=== PATIENT | female | born 1935 | race Caucasian/White ===

== ENCOUNTER 2020-08-24 16:31 | Emergency (ER) | payer MEDICARE, MEDICAID ==
--- NOTE | 2020-08-24 16:57 | EDM.PDOC ---
ED HPI GENERAL MEDICAL PROBLEM - General Chief Complaint: General Stated Complaint: MEDICAL VIA [facility] Time Seen by Provider: 08/24/20 16:56 Source of Information: Reports: Patient History Limitations: Reports: No Limitations - History of Present Illness INITIAL COMMENTS - FREE TEXT/NARRATIVE: pt was exercising in her apartment and she lost her balance and fell. She hit her rt chest and is having alot of pain when she does deep breathes. Onset: Today, Sudden Duration: Hour(s): Location: Reports: Chest Associated Symptoms: Reports: No Other Symptoms Right Middle Chest Pain Score (Numeric/FACES): 10 - Related Data Allergies Allergy/AdvReac Type Severity Reaction Status Date / Time metronidazole [From Flagyl] Allergy Paralysis Verified 11/14/13 07:45 Metronidazole HCl Allergy Paralysis Verified 11/14/13 07:45 [From Flagyl] Penicillins Allergy Cannot Verified 11/14/13 07:45 Remember sulfamethoxazole Allergy Hives Verified 11/14/13 07:45 [From Septra] trimethoprim [From Septra] Allergy Hives Verified 11/14/13 07:45 Home Meds: Home Meds Hydrochlorothiazide/Lisinopril [Lisinopril-HCTZ 20-25 MG] 1 tab PO DAILY 11/11/13 [History] Metoprolol Tartrate [Lopressor] 50 mg PO BID 11/11/13 [History] Dnxfj-8-Osto Ethyl Esters [Lovaza] 1 tab PO DAILY 11/11/13 [History] allopurinoL [Allopurinol] 100 mg PO DAILY 11/11/13 [History] Cyclobenzaprine [Flexeril] 5 mg PO QID 08/24/20 [History] Past Medical History Cardiovascular History: Reports: Hypertension - Infectious Disease History Infectious Disease History: Reports: Chicken Pox, Measles, Mumps Social & Family History - Tobacco Use Tobacco Use Status *Q: Never Tobacco User - Caffeine Use Caffeine Use: Reports: None - Recreational Drug Use Recreational Drug Use: No ED ROS GENERAL - Review of Systems Review Of Systems: See Below Constitutional: Reports: No Symptoms HEENT: Reports: No Symptoms Respiratory: Reports: Shortness of Breath, Other (pain with deep breathing. ) Cardiovascular: Reports: No Symptoms Endocrine: Reports: No Symptoms GI/Abdominal: Reports: No Symptoms : Reports: No Symptoms Musculoskeletal: Reports: Other ( tender over the rt chest. ) Skin: Reports: No Symptoms ED EXAM, GENERAL - Physical Exam Exam: See Below Free Text/Narrative:: t when she moves or takes a deep breath. Exam Limited By: No Limitations General Appearance: Alert, Anxious, Moderate Distress Ears: Normal TMs Nose: Normal Inspection Throat/Mouth: Normal Inspection Head: Atraumatic Neck: Normal Inspection Respiratory/Chest: Splinting Cardiovascular: Regular Rate, Rhythm GI/Abdominal: Soft, Non-Tender (Female) Exam: Deferred Rectal (Female) Exam: Deferred Back Exam: Normal Inspection Extremities: Normal Inspection Course - Vital Signs Last Recorded V/S: Last Vital Signs Temp 35.9 C L 08/24/20 16:38 Pulse 60 08/24/20 17:44 Resp 15 08/24/20 17:44 BP 171/78 H 08/24/20 17:44 Pulse Ox 96 08/24/20 17:44 - Orders/Labs/Meds Orders: Active Orders 24 hr Category Date Time Status Ribs 2V w Chest Rt [CR] Stat Exams 08/24/20 16:53 Taken Meds: Medications Discontinued Medications Generic Name Dose Route Start Last Admin Trade Name Premq PRN Reason Stop Dose Admin Ketorolac Tromethamine 60 mg 08/24/20 17:31 08/24/20 17:44 Toradol IM 08/24/20 17:32 60 mg ONETIME ONE Administration - Re-Assessments/Exams Free Text/Narrative Re-Assessment/Exam: 08/24/20 18:02 rib detail did not reveal any definite rib fractures obviously she could have a hairline fracture. Departure - Departure Time of Disposition: 17:56 Disposition: Home, Self-Care 01 Condition: Fair Clinical Impression: Chest wall contusion - Discharge Information Instructions: Contusion, [id number] Referrals: PCP,None [Primary Care Provider] - Forms: ED Department Discharge Care Plan Goals: cool pack to rt ant cest, tylenol 3 1 tab q6h prn for pain, pain meds can cause constipation, use prunes. to keep stools soft. encourage deep breathing, insentive spirometer. Sepsis Event Note (ED) - Evaluation Sepsis Screening Result: No Definite Risk - Focused Exam Vital Signs: Vital Signs Temp Pulse Resp BP Pulse Ox 08/24/20 17:44 60 15 171/78 H 96 08/24/20 17:15 57 L 162/76 H 08/24/20 16:38 35.9 C L 70 17 168/86 H 96 08/24/20 16:35 35.9 C L 70 17 168/86 H 96 - My Orders Last 24 Hours: My Active Orders 08/24/20 16:53 Ribs 2V w Chest Rt [CR] Stat - Assessment/Plan Last 24 Hours: My Active Orders 08/24/20 16:53 Ribs 2V w Chest Rt [CR] Stat
[2020-08-24] MEDS ORDERED: Ketorolac 60 MG/2 ML SDV IM ONE (17:31)
--- NOTE | 2020-08-27 10:31 | CR ---
Ribs 2V w Chest Rt CLINICAL HISTORY: Pain, fall FINDINGS: There is no acute fracture within the ribs. No destructive changes are seen. There is no focal pleural thickening or obvious effusion. There are atherosclerotic changes in the aorta. IMPRESSION: Negative right ribs.
== END 2020-08-24 19:00 | disposition home or self-care (01) ==
LOC: JP.ED 16:31
DX: S20.211A Contusion of right front wall of thorax, initial encounter (principal); I10 Essential (primary) hypertension; Z88.1 Allergy status to other antibiotic agents; Z88.0 Allergy status to penicillin; Z88.2 Allergy status to sulfonamides; Z79.899 Other long term (current) drug therapy; W01.0XXA Fall on same level from slipping, tripping and stumbling without subsequent striking against object, initial encounter
CPT/HCPCS: 71101-26-RT; 71101-RT; 96372; 99283; 99283-25; J1885

== ENCOUNTER 2020-08-26 19:37 | Inpatient (IN) | payer MEDICARE, MEDICAID ==
[2020-08-26] MEDS ORDERED: Sodium Chloride 0.9% 10 ML Syringe FLUSH PRN (21:11)
--- NOTE | 2020-08-26 21:40 | EDM.PDOC ---
ED HPI GENERAL MEDICAL PROBLEM - General Chief Complaint: Back Pain or Injury Stated Complaint: MED VIA NOR[facility] Time Seen by Provider: 08/26/20 20:00 Source of Information: Reports: Patient, EMS History Limitations: Reports: No Limitations - History of Present Illness INITIAL COMMENTS - FREE TEXT/NARRATIVE: 85-year-old female who is fallen several times at home in the last few days, was evaluated in the emergency room 3 days ago with chest wall contusion. She fell 2 more times today, one hard on her back and now she has significant back pain. She has some chronic back pain but it is markedly worse. EMS was called for a "lift assist" but found her in much worse condition than her baseline so brought her in for evaluation. She has significant tenderness in the mid and lower back. No nausea or vomiting, chest pain, shortness of breath or head injury. Onset: Sudden (Sudden increase in back pain after falls today) Location: Reports: Back Associated Symptoms: Reports: No Other Symptoms. 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 Middle Back Pain Score (Numeric/FACES): 8 - Related Data Allergies Allergy/AdvReac Type Severity Reaction Status Date / Time metronidazole [From Flagyl] Allergy Paralysis Verified 08/26/20 20:56 Metronidazole HCl Allergy Paralysis Verified 08/26/20 20:56 [From Flagyl] Penicillins Allergy Cannot Verified 08/26/20 20:56 Remember sulfamethoxazole Allergy Hives Verified 08/26/20 20:56 [From Septra] trimethoprim [From Septra] Allergy Hives Verified 08/26/20 20:56 Home Meds: Home Meds Hydrochlorothiazide/Lisinopril [Lisinopril-HCTZ 20-25 MG] 1 tab PO DAILY 11/11/13 [History] Metoprolol Tartrate [Lopressor] 50 mg PO BID 11/11/13 [History] Bdyjh-5-Etis Ethyl Esters [Lovaza] 1 tab PO DAILY 11/11/13 [History] allopurinoL [Allopurinol] 100 mg PO DAILY 11/11/13 [History] Cyclobenzaprine [Flexeril] 5 mg PO QID PRN 08/24/20 [History] Past Medical History Cardiovascular History: Reports: Arrhythmia, High Cholesterol, Hypertension Other Cardiovascular History: frequent PVC's 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: Reports: GERD 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: Musculoskeletal History: Reports: Back Pain, Chronic, Osteoarthritis Endocrine/Metabolic History: Reports: Hypokalemia - Infectious Disease History Infectious Disease History: Reports: Chicken Pox, Measles, Mumps - Past Surgical History GI Surgical History: Reports: Colonoscopy Female Surgical History: Reports: Tubal Ligation Social & Family History - Tobacco Use Tobacco Use Status *Q: Never Tobacco User Second Hand Smoke Exposure: No - Caffeine Use Caffeine Use: Reports: None - Recreational Drug Use Recreational Drug Use: No ED ROS GENERAL - Review of Systems Review Of Systems: See Below Constitutional: Denies: Fever, Chills, Malaise HEENT: Reports: No Symptoms Respiratory: Denies: Shortness of Breath Cardiovascular: Denies: Chest Pain GI/Abdominal: Denies: Abdominal Pain, Nausea, Vomiting Skin: Denies: Bruising Neurological: Denies: Paresthesia Psychiatric: Reports: No Symptoms ED EXAM,LOWER BACK PAIN/INJURY - Physical Exam Exam: See Below Exam Limited By: No Limitations General Appearance: Alert, No Apparent Distress (Uncomfortable when lying still but not distressed, very difficult to move even with assistance) Eye Exam: Bilateral Eye: EOMI Head: Atraumatic Neck: Supple, Non-Tender Respiratory/Chest: Lungs Clear Cardiovascular: Regular Rate, Rhythm Back Exam: Vertebral Tenderness (Some mild increased tenderness to percussion of the mid thoracic spine and palpation of the paralumbar muscles) Neurological: Alert, No Motor/Sensory Deficits, Oriented x 3 Psychiatric: Normal Affect, Normal Mood Skin Exam: Warm, Dry Course - Vital Signs Last Recorded V/S: Last Vital Signs Temp 98.7 F 08/26/20 22:24 Pulse 91 08/26/20 22:24 Resp 20 08/26/20 22:24 BP 180/78 H 08/26/20 22:24 Pulse Ox 93 L 08/26/20 22:24 - Orders/Labs/Meds Orders: Active Orders 24 hr Category Date Time Status Sodium Chloride 0.9% [Saline Flush] Med 08/26/20 21:11 Active 10 ml FLUSH ASDIRECTED PRN Saline Lock Insert [OM.PC] Routine Oth 08/26/20 21:11 Ordered Medication Orders Acetaminophen (Tylenol) 650 mg PO Q4H PRN PRN Reason: Pain Hydrocodone Bitart/Acetaminophen ([place] 325-5 Mg) 1 tab PO Q4H PRN PRN Reason: Pain Allopurinol (Zyloprim) 100 mg PO DAILY NESTOR Docusate Sodium (Colace) 100 mg PO DAILY NESTOR Metoprolol Tartrate (Lopressor) 50 mg PO BID NESTOR Non-Formulary Medication (Hydrochlorothiazide/Lisinopril [Lisinopril-Hctz 20-25 Mg]) 1 tab PO DAILY NESTOR Sodium Chloride (Saline Flush) 10 ml FLUSH ASDIRECTED PRN PRN Reason: Keep Vein Open Last Admin: 08/26/20 22:10 Dose: 10 ml Documented by: OLIVA Meds: Medications Generic Name Dose Route Start Last Admin Trade Name Freq PRN Reason Stop Dose Admin Acetaminophen 650 mg 08/26/20 22:16 Tylenol PO Q4H PRN Pain Hydrocodone Bitart/Acetaminophen 1 tab 08/26/20 22:16 [place] 325-5 Mg PO Q4H PRN Pain Allopurinol 100 mg 08/27/20 09:00 Zyloprim PO DAILY NESTOR Docusate Sodium 100 mg 08/27/20 09:00 Colace PO DAILY NESTOR Metoprolol Tartrate 50 mg 08/27/20 09:00 Lopressor PO BID NESTOR Non-Formulary Medication 1 tab 08/27/20 09:00 Hydrochlorothiazide/Lisinopril [Lisinopril-Hctz 20-25 Mg] PO DAILY NESTOR Sodium Chloride 10 ml 08/26/20 21:11 08/26/20 22:10 Saline Flush FLUSH 10 ml ASDIRECTED PRN Administration Keep Vein Open Discontinued Medications Generic Name Dose Route Start Last Admin Trade Name Freq PRN Reason Stop Dose Admin Fentanyl 25 mcg 08/26/20 21:51 08/26/20 22:05 Sublimaze IVPUSH 08/26/20 21:52 25 mcg ONETIME ONE Administration - Re-Assessments/Exams Free Text/Narrative Re-Assessment/Exam: 08/26/20 21:39 CT of the thoracic and lumbar spine was obtained and showed compression fractures which are very possibly new, we do not have previous to compare. The results are pending and will be inserted below when available. This patient is still living independently and is unable to go home, Dr. Wayne will admit her to observation status to initiate rehab. 08/26/20 22:03 PRELIMINARY IMPRESSION: 1. Acute mild superior endplate compression fracture at T10, with approximately 25 percent anterior vertebral body height loss and 15 percent posterior vertebral body height loss. 2. Acute minor superior endplate compression fracture of T12 with approximately 10-15 percent vertebral body height loss. 3. No other acute thoracic spine compression fracture is identified. Remote appearing mild T5 and T6 superior endplate compression fractures. 4. Extra-spinal findings will be discussed in the final report. Dictated by Harrison Robles MD @ 08/26/2020 9:49:45 PM 08/26/20 22:04 Patient was given 25 mcg of fentanyl IV prior to transfer to floor. Departure - Departure Time of Disposition: 22:27 Disposition: Admitted As Inpatient 64 Clinical Impression: Compression fx, thoracic spine Qualifiers: Encounter type: initial encounter Thoracic vertebra fracture level: T10 Qualified Code(s): S22.070A - Wedge compression fracture of T9-T10 vertebra, initial encounter for closed fracture - Discharge Information Sepsis Event Note (ED) - Evaluation Sepsis Screening Result: No Definite Risk - Focused Exam Vital Signs: Vital Signs Temp Pulse Resp BP Pulse Ox 08/26/20 21:25 98.2 F 78 20 155/66 H 92 L 08/26/20 20:58 78 20 155/66 H 92 L 08/26/20 20:38 39 L 21 H 176/72 H 96 08/26/20 20:00 37 L 18 168/66 H 96 08/26/20 19:43 98.2 F 78 20 168/61 H 93 L - My Orders Last 24 Hours: My Active Orders 08/26/20 21:11 Sodium Chloride 0.9% [Saline Flush] 10 ml FLUSH ASDIRECTED PRN Saline Lock Insert [OM.PC] Routine - Assessment/Plan Last 24 Hours: My Active Orders 08/26/20 21:11 Sodium Chloride 0.9% [Saline Flush] 10 ml FLUSH ASDIRECTED PRN Saline Lock Insert [OM.PC] Routine
[2020-08-26] MEDS ORDERED: fentaNYL 100 MCG/2 ML SDV IVPUSH ONE (21:51)
--- NOTE | 2020-08-26 21:51 | CRLCT ---
Indication: Back pain. Fall. Technique: Axial images. Sagittal and coronal reconstructions. Comparison: None. Findings: There are remote appearing mild superior endplate compression deformities/fractures involving the T5 and T6 vertebral bodies. There is an acute appearing mild compression fracture involving the superior aspect of the T10 vertebral body. There is approximately 25% loss of anterior vertebral body height and 15% loss of the posterior vertebral body height at this level. The fracture does extend to the posterior margin of the vertebral body although there is no significant posterior displacement. There is also an acute minor compression fracture involving the superior aspect of the T12 vertebral body, with approximately 10-15% overall vertebral body height loss. Multilevel disc degeneration is noted. There does appear to be a posterior central disc protrusion at T9-10, which results in at least mild spinal canal stenosis at this level. This is suboptimally assessed with CT. Mild cardiomegaly. Atherosclerotic changes. Aortic valve calcifications. Old healed granulomatous disease. Mild bibasilar atelectasis. Low attenuation left renal mass is suboptimally evaluated. If this has not been previously evaluated, this could be further assessed with an ultrasound. Impression: 1. Acute compression fractures involving the T10 and T12 vertebral bodies as described above. 2. Remote T5 and T6 compression fractures. 3. Disc protrusion at T9-10 resulting in at least mild spinal stenosis. 4. Indeterminate left renal mass. Consider further imaging assessment if this has not been previously evaluated. 5. Other findings as noted. Please note that all CT scans at this facility use dose modulation, iterative reconstruction, and/or weight-based dosing when appropriate to reduce radiation dose to as low as reasonably achievable. Dictated by Harrison Robles MD @ Aug 27 2020 7:58AM Signed by Dr. Harrison Robles @ Aug 27 2020 12:07PM
--- NOTE | 2020-08-26 21:57 | CRLCT ---
INDICATION: Trauma. Back pain. TECHNIQUE: Axial images. Sagittal and coronal reconstructions. COMPARISON: None available. FINDINGS: There is no lumbar spine fracture. There is minor anterolisthesis at L4-5. Multilevel disc degeneration, most significant at L4-5 where there is moderate to advanced disc height loss, low-grade circumferential disc bulge, and vacuum disc phenomena. Multilevel facet arthrosis is noted, most significant at L3-4, L4-5 and L5-S1. Atherosclerotic changes. No abdominal aortic aneurysm. IMPRESSION: 1. No acute fracture involving the lumbar spine. 2. Lumbar spondylosis as described above. Please note that all CT scans at this facility use dose modulation, iterative reconstruction, and/or weight-based dosing when appropriate to reduce radiation dose to as low as reasonably achievable. Dictated by aHrrison Robles MD @ Aug 27 2020 9:33AM Signed by Dr. Harrison Robles @ Aug 27 2020 11:52AM
[2020-08-26] MEDS ORDERED: Acetaminophen 325 MG Tab PO PRN (22:16)
--- NOTE | 2020-08-26 23:48 | HP ---
IDENTIFYING DATA: Fauzia Baker is an 85-year-old female from [place], [place]. CHIEF COMPLAINT: Back pain. HISTORY OF PRESENT ILLNESS: An elderly female who lives independently in a senior apartment dwelling, has had episodes of self-reported dizziness and recurrent falls without loss of consciousness. General unsteadiness and weakness are noted with occasional use of a walker as an ambulatory aid. She was seen earlier in the week with a fall and right chest contusion, without bony fractures. She had a fall today to a supine position and presented with mid to lower back pain. She has had no radiation of pain to the cervical area, upper or lower extremities. No paresthesias noted. Chronic mild stiffness of the neck is of long- standing duration. Given pain and inability to care for self, she was transported by [facility] to the emergency room for evaluation. PAST MEDICAL HISTORY: Previous surgeries include bilateral cataract extraction and tubal ligation. Additional health problems include hyperlipidemia, hypertension, osteopenia, and osteoarthritis. HABITS: Nonsmoker. No alcohol use. No regular use of caffeinated beverages. ALLERGIES: REPORTED TO METRONIDAZOLE, PENICILLIN, AND SULFAMETHOXAZOLE. CURRENT MEDICATIONS: Lisinopril with hydrochlorothiazide 20/25 mg daily, metoprolol tartrate 50 mg b.i.d., omega-3 fatty acid tablets 1 daily, allopurinol 100 mg daily for gouty arthritis, cyclobenzaprine 5 mg q.i.d. p.r.n., and acetaminophen p.r.n. arthritic pain. IMMUNIZATIONS: She generally refuses influenza vaccines. Reports she has received previous pneumococcal vaccine and 1 of 2 COVID vaccines today. SOCIAL HISTORY: Currently resides at [facility]. She has home care and nursing assistance provided by [facility] with weekly nursing visits and monthly cleaning provided. She no longer drives. She does have an attendant to provide transportation for appointments and grocery shopping. She reports she does her own laundry and prepares 2 of 3 meals daily, participating in provided lunch. FAMILY HISTORY: Children do not live in the immediate area. No close relatives in the [place] region at the current time. REVIEW OF SYSTEMS: NEUROLOGIC: Does admit to mild memory loss and denies significant hearing decline. No history of stroke, seizures, headaches, or focal weakness. Status post cataract extraction. She is able to read standard print. CARDIAC: History of hypertension and hyperlipidemia. Denies history of diabetes, [place], angina-like pain, or syncope. She reports a history of childhood murmur. RESPIRATORY: No history of tuberculosis, chronic asthmatic lung disease, COPD, or noted COVID disease. No cough, sputum production, or shortness of breath. GASTROINTESTINAL: Denies dyspepsia, hepatitis, jaundice, gallbladder disease, or bowel changes. No melena or hematochezia. Occasional intermittent diarrhea noted with ingestion of fatty foods. GENITOURINARY: No urinary incontinence. Records suggest a history renal insufficiency. MUSCULOSKELETAL: Arthralgias at the knees, chronic mild cervical stiffness, and new onset of mid to low back pain. PHYSICAL EXAMINATION: GENERAL: Appearance is that of an elderly female, now appearing comfortable, lying in her hospital bed. VITAL SIGNS: Initial vitals; temperature 98.7 degrees Fahrenheit, pulse 91, respiratory rate 20, blood pressure 180/78, and O2 sats 93% on room air. HEENT: Hearing is intact with normal canals and TMs. Extraocular eye movements are symmetrical. Sclerae are anicteric. No nasal congestion. No facial asymmetries or trauma. NECK: Brisk, regular carotid pulses. No bruits, JVD, or thyromegaly. LUNGS: Symmetrical, clear, resonant, and non-tachypneic. HEART: Regular without murmurs or gallops currently noted. ABDOMEN: Soft, nontender, and nondistended. No organomegaly. Active sounds. Good femoral pulses. No abdominal bruits. No CVA pain. EXTREMITIES: Good radial, posterior tibial, and dorsal pedal pulses. No pitting edema. No ischemic skin changes. No contusions or open skin lesions. NEUROLOGIC: Symmetrical strength. Some distractibility and difficulty engaging in conversation secondary to immediate recall and short-term memory deficit. No agitation, anxiety, or depressive symptoms. IMAGING: CT imaging of the thoracolumbar spine on admission suggest recent thoracic vertebral compression fractures, likely new in presentation. LABORATORY DATA: Labs of August 2020 include a creatinine is 0.98, cholesterol 161, LDL 88, glucose 95, potassium 4, and BUN 18. WBC 9.1 and hemoglobin 15.3. Sodium 132. IMPRESSION: 1. Fall with thoracic vertebral compression fractures and back pain. 2. Recurrent falls, unknown etiology. The patient reports episodes of transient dizziness. 3. Degenerative arthritis. 4. Hypertension. 5. Hyperlipidemia. 6. Osteoarthritis and osteopenia. 7. Reported history of gouty arthritis. PLAN: With the patient's acute injury in ongoing discomfort with inability to care for self, she is unable to be discharged to home. She will be admitted to outpatient status with assistance provided with ADLs, heat to the back, analgesics in the form of acetaminophen or hydrocodone with acetaminophen will be provided. PT and OT assessments requested. If she continues to show deficits and is unable to resume independent living, recuperative and rehab stay in the care home may be necessary. The patient is agreeable to this if required. DNR/DNI status will be instituted per patient's expressed desire. Provide 2 g sodium diet and maintain on regular home medications. Chai Wayne MD /[id number]
[2020-08-27] MEDS: Acetaminophen/HYDROcodone 325-5 MG Tab PO PRN ×3 (00:38→10:03)
--- NOTE | 2020-08-27 04:33 | PN ---
DATE OF SERVICE: 08/27/2020 SUBJECTIVE: An 85-year-old female who resides independently in a senior apartment dwelling, is seen today for followup of complaints of mid to low back pain. She has had recent admitted recurrent falls with right anterior chest contusion as well as development of mid to low back pain yesterday evening following a fall. Etiology of falls is unknown. She attributes this to recurrent episodes of dizziness without loss of consciousness. Additionally, she has noted history of osteoarthritis of the knees and ambulates with the use of a walker on an intermittent basis. She has had no chest pain, palpitations, or unusual shortness of breath. No GI or complaints. No radiating pain to the lower extremities. Through the nighttime hours, she is resting comfortably in bed with use of analgesic therapy. Has not required ambulation to the bathroom. OBJECTIVE: VITAL SIGNS: Blood pressure 136/43, respiratory rate 16 with O2 sats of 92% on room air, pulse rate 70. Telemetry reveals frequent PVCs with bigeminal pattern. No other tachy or sangeeta dysrhythmia. Temperature 36.3 degrees centigrade. GENERAL: The patient is conversant, talkative, comfortable in appearance. LUNGS: Clear. HEART: Regular without gallops. BACK: Notes midback pain with repositioning or movement in bed. IMPRESSION AND PLANS: 1. Recurrent falls with mid to low back pain. CT imaging on presentation revealed thoracic vertebral compression fractures, is likely etiology of falls. We will continue with analgesic therapy and assistance with performance of activities of daily living and request Physical Therapy/Occupational Therapy assessment with further decision making and disposition to follow. Likely will require time spent in the alf setting as she recovers from her back injury. 2. Recurrent falls, unknown etiology, may be secondary to instability. I will continue to monitor in telemetry to exclude cardiac dysrhythmia as etiology of her reported dizziness. 3. Chronic degenerative arthritis. Does have acetaminophen available to use on a p.r.n. basis. 4. Hypertension and hyperlipidemia by history. Currently stable. Continue with regular medications. Chai Wayne MD /[id number]
[2020-08-27] MEDS ORDERED: Hydrochlorothiazide 25 MG Tab PO SCH (09:00)
[2020-08-27] MEDS ORDERED: Lisinopril 20 MG Tab PO SCH (09:00)
[2020-08-27] MEDS ORDERED: Docusate Sodium 100 MG Cap PO SCH (09:00)
[2020-08-27] MEDS ORDERED: Allopurinol 100 MG Tab PO SCH (09:00)
[2020-08-27] MEDS ORDERED: Metoprolol Tartrate 50 MG Tab PO SCH (09:00)
[2020-08-27] MEDS ORDERED: Non-Formulary Medication 1 Each (Hydrochlorothiazide/Lisinopril [Lisinopril-Hctz 20-25 Mg] PO SCH (09:00)
[2020-08-27] MEDS ORDERED: oxyCODONE 5 MG Tab PO PRN (10:35)
[2020-08-27] MEDS ORDERED: Magnesium Hydroxide 400 MG/5 ML Susp 30 ML Cup PO PRN (10:36)
[2020-08-27] MEDS ORDERED: Acetaminophen 500 MG Tab PO SCH (14:00)
[2020-08-27] MEDS ORDERED: Diltiazem 120 MG Cap.CD PO ONE (15:00)
[2020-08-27] MEDS ORDERED: Aspirin 81 MG Tab.Chew PO STA (18:59)
[2020-08-27] MEDS ORDERED: Heparin Sodium 5,000 Units/ML Vial IVPUSH ONE (18:59)
[2020-08-27] MEDS ORDERED: Heparin Sodium/D5W 25,000 UNITS/500 ML BAG IV SCH (19:00)
--- NOTE | 2020-08-27 19:14 | PCM.DCSUM1 ---
Discharge Summary - Hospital Course Brief History: 85 yr old female with history of essential hypertension who presented with back pain after an episode of syncope at home. She was admitted for pain control with 2 small compression fractures, 1 at T10 and 1 at T12. Diagnosis: Stroke: No - Discharge Data Discharge Date: 08/27/20 Discharge Disposition: DC/Tfer to Acute Hospital 02 Condition: Stable - Referral to Home Health Primary Care Physician: Patrice Gamino MD - Discharge Diagnosis/Problem(s) (1) NSTEMI (non-ST elevated myocardial infarction) SNOMED Code(s): 46141616 ICD Code: I21.4 - NON-ST ELEVATION (NSTEMI) MYOCARDIAL INFARCTION Status: Acute Current Visit: Yes (2) Symptomatic bradycardia SNOMED Code(s): 72135995, 711343198 ICD Code: R00.1 - BRADYCARDIA, UNSPECIFIED Status: Acute Current Visit: Yes (3) Compression fx, thoracic spine SNOMED Code(s): 310352560 ICD Code: S22.000A - WEDGE COMPRESSION FRACTURE OF UNSP THORACIC VERTEBRA, INIT Status: Acute Current Visit: Yes Qualifiers: Encounter type: initial encounter Thoracic vertebra fracture level: T10 Qualified Code(s): S22.070A - Wedge compression fracture of T9-T10 vertebra, initial encounter for closed fracture (4) Compression fracture of T12 vertebra SNOMED Code(s): 870448286 ICD Code: S22.080A - WEDGE COMPRESSION FRACTURE OF T11-T12 VERTEBRA, INIT Status: Acute Current Visit: Yes Qualifiers: Encounter type: initial encounter Qualified Code(s): S22.080A - Wedge compression fracture of T11-T12 vertebra, initial encounter for closed fracture - Patient Summary/Data Consults: Consultations 08/26/20 22:19 Consult to Occupational Therapy [OT Evaluation and Treatment] [CONS] Routine Please Evaluate and Treat. OT Reason for Consult: Discharge Planning Pending Discharge: No This query below is only for informational purposes and is not editable. Admission Diagnosis/Problem: Pain in cervical spine PT Evaluation and Treatment [CONS] Routine Please Evaluate and Treat. PT Reason for Consult: weakness and falls Pending Discharge: No This query below is only for informational purposes and is not editable. Admission Diagnosis/Problem: Pain in cervical spine Hospital Course: Fauzia presented to the emergency room with back pain after a syncopal episode at home. Work-up in the emergency room included imaging studies that showed a small compression fracture at T10 and T12. The patient was admitted to the hospital on observation for pain control. Cardiac monitoring overnight showed bigeminy with a heart rate around 80. Laboratory studies were obtained the next morning which showed mild hyponatremia and mild leukocytosis. Kidney function was normal. Urinalysis was not suggestive of infection. An EKG was obtained and this did show bigeminy but no acute changes. Throughout the course of the day the patient was relatively stable and had good control of her back pain. As the day progressed she started to have episodes that lasted from 10 to 15 seconds where her heart rate would drop down to the mid to upper 30s. When she had these episodes she felt nauseated and a little dizzy even laying in bed. I did talk to the on-call purchasing engineer at [facility]. We discussed additional work-up including a stress test. We did complete an echocardiogram which showed an ejection fraction of 50% and minor valvular abnormalities as well as elevated pulmonary pressures. Later in the evening the patient had an episode of chest pain. An EKG was obtained and did not show any acute ST changes. I again talked to on-call cardiology as well as the hospitalist at [facility]. After my discussion about transfer a troponin level was drawn and did return positive at 0.233. The patient was given 324 mg of aspirin as well as a 4000 unit bolus of heparin and a heparin drip was started. The patient is going to be transferred to [facility] for management of a non-ST elevation myocardial infarction as well as symptomatic bradycardia with bigeminy and a very high PVC burden. Patient has been in bigeminy throughout the course of her hospital stay with about 99% of the time being in bigeminy with only short runs of a sinus rhythm. Patient is stable for transport at this time and I think that the benefits of transfer far outweigh the risks. Her son Best was updated. José Luis Jewell [phone] - Patient Instructions Other/Special Instructions: transfer to [facility], symptomatic bradycardia, NSTEMI - Discharge Plan *PRESCRIPTION DRUG MONITORING PROGRAM REVIEWED*: Not Applicable *COPY OF PRESCRIPTION DRUG MONITORING REPORT IN PATIENT HEBER: Not Applicable Home Medications: Home Meds Hydrochlorothiazide/Lisinopril [Lisinopril-HCTZ 20-25 MG] 1 tab PO DAILY 11/11/13 [History] Metoprolol Tartrate [Lopressor] 50 mg PO BID 11/11/13 [History] Gigqt-2-Hrsg Ethyl Esters [Lovaza] 1 tab PO DAILY 11/11/13 [History] allopurinoL [Allopurinol] 100 mg PO DAILY 11/11/13 [History] Cyclobenzaprine [Flexeril] 10 mg PO BEDTIME PRN 08/24/20 [History] Lutein 6 mg PO DAILY 08/27/20 [History] Forms: ED Department Discharge Referrals: Patrice Gamino MD [Primary Care Provider] - - Discharge Summary/Plan Comment DC Time >30 min.: Yes (75-transfer to acute hospital ) - Patient Data Vitals - Most Recent: Last Vital Signs Temp 35.7 C L 08/27/20 18:47 Pulse 80 08/27/20 18:47 Resp 18 08/27/20 18:47 BP 161/69 H 08/27/20 18:47 Pulse Ox 91 L 08/27/20 18:47 Weight - Most Recent: 86.183 kg I&O - Last 24 hours: Intake & Output 08/27/20 08/27/20 08/27/20 06:59 14:59 22:59 Intake Total 550 1620 600 Output Total 600 650 100 Balance -50 970 500 Lab Results - Last 24 hrs: Laboratory Results - last 24 hr 08/27/20 08/27/20 08/27/20 Range/Units 08:22 08:22 11:12 WBC 11.6 H (4.5-11.0) K/uL RBC 4.54 (3.30-5.50) M/uL Hgb 14.2 (12.0-15.0) g/dL Hct 41.6 (36.0-48.0) % MCV 92 (80-98) fL MCH 31 (27-31) pg MCHC 34 (32-36) % Plt Count 180 (150-400) K/uL Neut % (Auto) 57 (36-66) % Lymph % (Auto) 32 (24-44) % [place] % (Auto) 8 H (2-6) % Eos % (Auto) 2 (2-4) % Baso % (Auto) 0 (0-1) % Sodium 128 L (140-148) mmol/L Potassium 5.0 (3.6-5.2) mmol/L Chloride 94 L (100-108) mmol/L Carbon Dioxide 28 (21-32) mmol/L Anion Gap 11.0 (5.0-14.0) mmol/L BUN 19 H (7-18) mg/dL Creatinine 0.9 (0.6-1.0) mg/dL Est Cr Clr Drug Dosing 34.83 mL/min Estimated GFR (MDRD) 59 L (>60) Glucose 115 H (74-106) mg/dL Calcium 9.3 (8.5-10.1) mg/dL Troponin I (0.000-0.056) ng/mL Urine Color Yellow (YELLOW) Urine Appearance Clear (CLEAR) Urine pH 5.5 (5.0-8.0) Ur Specific [place] 1.015 (1.008-1.030) Urine Protein Negative (NEGATIVE) mg/dL Urine Glucose (UA) Negative (NEGATIVE) mg/dL Urine Ketones Negative (NEGATIVE) mg/dL Urine Occult Blood Trace-intact H (NEGATIVE) Urine Nitrite Negative (NEGATIVE) Urine Bilirubin Negative (NEGATIVE) Urine Urobilinogen 0.2 (0.2-1.0) EU/dL Ur Leukocyte Esterase Negative (NEGATIVE) Urine RBC 0-5 (0-5) Urine WBC 0-5 (0-5) Ur Epithelial Cells Rare 08/27/20 Range/Units 18:23 WBC (4.5-11.0) K/uL RBC (3.30-5.50) M/uL Hgb (12.0-15.0) g/dL Hct (36.0-48.0) % MCV (80-98) fL MCH (27-31) pg MCHC (32-36) % Plt Count (150-400) K/uL Neut % (Auto) (36-66) % Lymph % (Auto) (24-44) % [place] % (Auto) (2-6) % Eos % (Auto) (2-4) % Baso % (Auto) (0-1) % Sodium (140-148) mmol/L Potassium (3.6-5.2) mmol/L Chloride (100-108) mmol/L Carbon Dioxide (21-32) mmol/L Anion Gap (5.0-14.0) mmol/L BUN (7-18) mg/dL Creatinine (0.6-1.0) mg/dL Est Cr Clr Drug Dosing mL/min Estimated GFR (MDRD) (>60) Glucose (74-106) mg/dL Calcium (8.5-10.1) mg/dL Troponin I 0.233 H* (0.000-0.056) ng/mL Urine Color (YELLOW) Urine Appearance (CLEAR) Urine pH (5.0-8.0) Ur Specific [place] (1.008-1.030) Urine Protein (NEGATIVE) mg/dL Urine Glucose (UA) (NEGATIVE) mg/dL Urine Ketones (NEGATIVE) mg/dL Urine Occult Blood (NEGATIVE) Urine Nitrite (NEGATIVE) Urine Bilirubin (NEGATIVE) Urine Urobilinogen (0.2-1.0) EU/dL Ur Leukocyte Esterase (NEGATIVE) Urine RBC (0-5) Urine WBC (0-5) Ur Epithelial Cells Med Orders - Current: Current Medications Acetaminophen (Tylenol Extra Strength) 1,000 mg PO TID [facility] Last Admin: 08/27/20 13:11 Dose: 1,000 mg Documented by: Allopurinol (Zyloprim) 100 mg PO DAILY [facility] Last Admin: 08/27/20 08:50 Dose: 100 mg Documented by: Heparin Sodium/Dextrose (Heparin 25,000 Units In D5w 500 Ml) 25,000 units in 500 mls @ 20.684 mls/hr IV TITRATE [facility]; Protocol Magnesium Hydroxide (Milk Of Magnesia) 30 ml PO BID PRN PRN Reason: Constipation Last Admin: 08/27/20 10:57 Dose: 30 ml Documented by: Metoprolol Tartrate (Lopressor) 50 mg PO BID [facility] Last Admin: 08/27/20 10:53 Dose: Not Given Documented by: Metoprolol Tartrate (Lopressor) 25 mg PO Q12H [facility] Oxycodone HCl (Oxycodone) 5 mg PO Q4H PRN PRN Reason: Pain Senna/Docusate Sodium (Senna Plus) 1 tab PO BID PRN PRN Reason: Constipation Last Admin: 08/27/20 10:57 Dose: 1 tab Documented by: Sodium Chloride (Saline Flush) 10 ml FLUSH ASDIRECTED PRN PRN Reason: Keep Vein Open Last Admin: 08/26/20 22:10 Dose: 10 ml Documented by: Discontinued Medications Acetaminophen (Tylenol) 650 mg PO Q4H PRN PRN Reason: Pain Last Admin: 08/27/20 00:38 Dose: 650 mg Documented by: Hydrocodone Bitart/Acetaminophen ([place] 325-5 Mg) 1 tab PO Q4H PRN PRN Reason: Pain Last Admin: 08/27/20 10:03 Dose: 1 tab Documented by: Aspirin (Aspirin) 324 mg PO ONETIME STA Stop: 08/27/20 19:00 Diltiazem HCl (Cardizem Cd) 120 mg PO ONETIME ONE Stop: 08/27/20 15:01 Last Admin: 08/27/20 16:09 Dose: Not Given Documented by: Docusate Sodium (Colace) 100 mg PO DAILY [facility] Last Admin: 08/27/20 08:49 Dose: 100 mg Documented by: Fentanyl (Sublimaze) 25 mcg IVPUSH ONETIME ONE Stop: 08/26/20 21:52 Last Admin: 08/26/20 22:05 Dose: 25 mcg Documented by: Heparin Sodium (Porcine) (Heparin Sodium) 4,000 units IVPUSH .BOLUS ONE Stop: 08/27/20 19:00 Hydrochlorothiazide (Hydrochlorothiazide) 25 mg PO DAILY [facility] Last Admin: 08/27/20 11:34 Dose: Not Given Documented by: Lisinopril (Prinivil) 20 mg PO DAILY [facility] Last Admin: 08/27/20 10:57 Dose: 20 mg Documented by: Non-Formulary Medication (Hydrochlorothiazide/Lisinopril [Lisinopril-Hctz 20-25 Mg]) 1 tab PO DAILY [facility]
[2020-08-27] MEDS ORDERED: Metoprolol Tartrate 25 MG Tab PO SCH (21:00)
== END 2020-08-27 19:55 | DRG 551 ==
LOC: JP.ED 19:37 → JP.MS 21:26 → OBSVTOIN 08-27 17:19
PROVIDERS: ADMIT Family Medicine; ATTEND Internal Medicine
DX: S22.070A Wedge compression fracture of T9-T10 vertebra, initial encounter for closed fracture (principal); I21.4 Non-ST elevation (NSTEMI) myocardial infarction; E87.1 Hypo-osmolality and hyponatremia; R00.1 Bradycardia, unspecified; S22.080A Wedge compression fracture of T11-T12 vertebra, initial encounter for closed fracture; E78.5 Hyperlipidemia, unspecified; M19.90 Unspecified osteoarthritis, unspecified site; M85.80 Other specified disorders of bone density and structure, unspecified site; I10 Essential (primary) hypertension; Z66 Do not resuscitate; M10.9 Gout, unspecified; E78.00 Pure hypercholesterolemia, unspecified; K21.9 Gastro-esophageal reflux disease without esophagitis; Z88.0 Allergy status to penicillin; Z88.2 Allergy status to sulfonamides; Z88.8 Allergy status to other drugs, medicaments and biological substances; W19.XXXA Unspecified fall, initial encounter
CPT/HCPCS: 36415; 72128; 72131; 80048; 81001; 84484; 85025; 93005; 93010; 93306; 96374; 97110-GP; 97161-GP; 97165-GO; 97535-GO; 99217; 99284; 99285-25; A9270-GY; J1644; J3010